=== PATIENT | male | born 1985 | race Caucasian/White ===

== ENCOUNTER 2017-04-20 01:50 | Emergency (ER) | payer BC, OTHER ==
[~2017-04-20] VITALS: Ht 190.5 cm; Wt 78.2 kg
[2017-04-20 01:52] VITALS: Ht 190.5 cm; Wt 78.2 kg
--- OUTSIDE RECORDS SUMMARY | 2017-04-20 01:54 | XMS REPORT | Referral Summary ---
Author Author [facility] Organization [facility] Address Unknown Phone Unavailable Care Team Providers Care Adjuster Name Role Phone No PCP, States Primary Care Physician [phone] Encounter VC Date(s): 06/14/15 - 06/14/15 [facility] [address] [place] [id number] Discharge Disposition: 01-Home or Self Care Attending Physician: Aguila Yu MD Admitting Physician: Aguila Yu MD Vital Signs Most recent to 1 oldest [Reference Range]: Blood Pressure 110/80 mmHg [90-140/60-90 mmHg] (06/14/15 11:19 AM) Problem List No Known Problems Allergies, Adverse Reactions, Alerts No Known Medication Allergies Medications mupirocin 2% topical ointment 1 kemal, Topical, BID, # 22 g, 0 Refill(s), Pharmacy: [facility] [id number] Start Date: 06/14/15 Status: Ordered Results No data available for this section Immunizations No data available for this section Procedures No data available for this section Social History Social History Type Response Smoking Status Current every day smoker; Type: Cigarettes; Tobacco use per day: 1 Pack Assessment and Plan Extracted from: Title: Ambulatory Patient Education Author: Aguila Yu MD Date: Allergy Rash A rash is a change in the color or texture of your skin. There are many different types of rashes. You may have other problems that accompany your rash. CAUSES Infections. Allergic reactions. This can include allergies to pets or foods. Certain medicines. Exposure to certain chemicals, soaps, or cosmetics. Heat. Exposure to poisonous plants. Tumors, both cancerous and noncancerous. SYMPTOMS Redness. Scaly skin. Itchy skin. Dry or cracked skin. Bumps. Blisters. Pain. DIAGNOSIS Your caregiver may do a physical exam to determine what type of rash you have. A skin sample (biopsy) may be taken and examined under a microscope. TREATMENT Treatment depends on the type of rash you have. Your caregiver may prescribe certain medicines. For serious conditions, you may need to see a skin doctor ( operator electronic warfare). HOME CARE INSTRUCTIONS Avoid the substance that caused your rash. Do not scratch your rash. This can cause infection. You may take cool baths to help stop itching. Only take zmrt-jnr-[id number] or prescription medicines as directed by your caregiver. Keep all follow-up appointments as directed by your caregiver. SEEK IMMEDIATE MEDICAL CARE IF: You have increasing pain, swelling, or redness. You have a fever. You have new or severe symptoms. You have body aches, diarrhea, or vomiting. Your rash is not better after 3 days. MAKE SURE YOU: Understand these instructions. Will watch your condition. Will get help right away if you are not doing well or get worse. Document Released: 10/31/2003 Document Revised: 02/01/2013 Document Reviewed: [facility] Patient Information 2015 [employer]. This information is not intended to replace advice given to you by your health care provider. Make sure you discuss any questions you have with your health care provider. No follow up information was provided. Extracted from: Title: Office Visit Note Author: Aguila Yu MD Date: 06/14/15 Assessment/Plan Impetigo Bactroban ointment bid for five days, keflex 500mg po qid for ten days. Wound culture or referral to Derm if not responding. Declined today due toexpenses. A work/school note was offered and deferred by the patient. Rash See above. Call report if not improving. Consider diflucan if not resolved.
--- OUTSIDE RECORDS SUMMARY | 2017-04-20 01:54 | XMS REPORT | Continuity of Care Document ---
Author Author [facility] Address Unknown Phone Unavailable Care Team Providers Care Pocket Marker Name Role Phone Aguila Yu PP Unavailable Payers Payer name Insurance type Covered republican ID Authorization(s) Unknown Problems Condition Effective Dates (start - stop) Clinical Status Pain in limb - *Acute Tobacco Abuse - *Chronic Family History Family Member Diagnosis Age At Onset Status Mother (Unknown) Alive and well (Unknown) Father (Unknown) Alive and well (Unknown) Social History Social History Element Description Quantity Unknown Allergies, Adverse Reactions, Alerts Substance Reaction Severity Status Unknown Medications Medication Instructions Dosage Effective Dates (start - stop) Status Chantix Continuing Month Desmond 1 mg tablet take 1 tablet (1MG) by oral route 2 times every day with a glass of water after meals 1 MG - Active Chantix Starting Month Desmond 0.5 mg (11)-1 mg (42) tablets in dose pack take by Oral route as directed on package 0 - Active tramadol 50 mg tablet 1-2 tabs po qhs - Active Mobic 7.5 mg tablet take 1 tablet (7.5MG) by oral route every 12 hours as needed. 7.5 MG - No Longer Active Motrin 800 mg tablet take 1 tablet (800MG) by oral route every 8 hours as needed. 800 MG - Active Immunizations Vaccine Date Status Comments Unknown Results Test Name Date and Time Measure Units Reference Range Abnormal Flag Comments Unknown Vital Signs Date / Time: Height Weight Pulse Rate Blood Pressure Temperature /10:26:00 75.00 in 155.00 lbs 120/76 mm[Hg] 98.9 F Procedures Procedure Date Unknown Encounters Encounter Location Date Patient Visit [facility] Patient Visit [facility] Advance Directives Directive Effective Date Unknown
--- OUTSIDE RECORDS SUMMARY | 2017-04-20 01:54 | XMS REPORT | Continuity of Care Document ---
Author Author [facility] Organization [facility] Address Unknown Phone Unavailable Allergies Active Description Code Type Severity Reaction Onset Reported/Identified Relationship to Patient Clinical Status Yes No Known Medication Allergies NKMA N/A N/A 10/24/2014 Medications Problems Procedures Results Encounters ACCT No. Visit Date/Time Discharge Status Pt. Type Provider Facility Loc./Unit Complaint [id number] 03/21/2016 09:19:00 2015 23:59:00 DIS Outpatient Aguila Yu [facility] [place] knot on foot [id number] 06/14/2015 11:09:00 2014 23:59:00 DIS Outpatient Aguila Yu [facility] [place] RASH [id number] 10/24/2014 19:08:00 2013 23:59:00 DIS Outpatient Chuck Ramachandran [facility] [place] POSS UPPER RESPITORY INFEC
--- OUTSIDE RECORDS SUMMARY | 2017-04-20 01:54 | XMS REPORT | Referral Summary ---
Author Author [facility] Organization [facility] Address Unknown Phone Unavailable Care Team Providers Care Anesthesiologist Name Role Phone Kavya Yu Primary Care Physician [phone] Encounter VC Date(s): 03/21/16 - 03/21/16 [facility] [address] [place] [id number]- Discharge Disposition: 01-Home or Self Care Attending Physician: Aguila Yu MD Admitting Physician: Aguila Yu MD Vital Signs Most recent to 1 oldest [Reference Range]: Blood Pressure 120/60 mmHg [90-140/60-90 mmHg] (03/21/16 9:29 AM) Problem List No Known Problems Allergies, Adverse Reactions, Alerts No Known Medication Allergies Medications mupirocin 2% topical ointment 1 kemal, Topical, BID, # 22 g, 0 Refill(s), Pharmacy: [facility] [id number] Start Date: 06/14/15 Status: Ordered Results No data available for this section Immunizations No data available for this section Procedures No data available for this section Social History Social History Type Response Smoking Status Current every day smoker; Type: Cigarettes; Tobacco use per day: 1 Pack Assessment and Plan Extracted from: Title: Ambulatory Patient Education Author: Aguila Yu MD Date: [facility] Medicine Cryotherapy Cryotherapy means treatment with cold. Ice or gel packs can be used to reduce both pain and swelling. Ice is the most helpful within the first 24 to 48 hours after an injury or flare-up from overusing a muscle or joint. Sprains, strains, spasms, burning pain, shooting pain, and aches can all be eased with ice. Ice can also be used when recovering from surgery. Ice is effective, has very few side effects, and is safe for most people to use. PRECAUTIONS Ice is not a safe treatment option for people with: Raynaud phenomenon. This is a condition affecting small blood vessels in the extremities. Exposure to cold may cause your problems to return. Cold hypersensitivity. There are many forms of cold hypersensitivity, including: Cold urticaria. Red, itchy hives appear on the skin when the tissues begin to warm after being iced. Cold erythema. This is a red, itchy rash caused by exposure to cold. Cold hemoglobinuria. Red blood cells break down when the tissues begin to warm after being iced. The hemoglobin that carry oxygen are passed into the urine because they cannot combine with blood proteins fast enough. Numbness or altered sensitivity in the area being iced. If you have any of the following conditions, do not use ice until you have discussed cryotherapy with your caregiver: Heart conditions, such as arrhythmia, angina, or chronic heart disease. High blood pressure. Healing wounds or open skin in the area being iced. Current infections. Rheumatoid arthritis. Poor circulation. Diabetes. Ice slows the blood flow in the region it is applied. This is beneficial when trying to stop inflamed tissues from spreading irritating chemicals to surrounding tissues. However, if you expose your skin to cold temperatures for too long or without the proper protection, you can damage your skin or nerves. Watch for signs of skin damage due to cold. HOME CARE INSTRUCTIONS Follow these tips to use ice and cold packs safely. Place a dry or damp towel between the ice and skin. A damp towel will cool the skin more quickly, so you may need to shorten the time that the ice is used. For a more rapid response, add gentle compression to the ice. Ice for no more than 10 to 20 minutes at a time. The bonier the area you are icing, the less time it will take to get the benefits of ice. Check your skin after 5 minutes to make sure there are no signs of a poor response to cold or skin damage. Rest 20 minutes or more between uses. Once your skin is numb, you can end your treatment. You can test numbness by very lightly touching your skin. The touch should be so light that you do not see the skin dimple from the pressure of your fingertip. When using ice, most people will feel these normal sensations in this order: cold, burning , aching, and numbness. Do not use ice on someone who cannot communicate their responses to pain , such as small children or people with dementia. HOW TO MAKE AN ICE PACK Ice packs are the most common way to use ice therapy. Other methods include ice massage, ice baths, and cryosprays. Muscle creams that cause a cold, tingly feeling do not offer the same benefits that ice offers and should not be used as a substitute unless recommended by your caregiver. To make an ice pack, do one of the following: Place crushed ice or a bag of frozen vegetables in a sealable plastic bag. Squeeze out the excess air. Place this bag inside another plastic bag. Slide the bag into a pillowcase or place a damp towel between your skin and the bag. Mix 3 parts water with 1 part rubbing alcohol. Freeze the mixture in a sealable plastic bag. When you remove the mixture from the freezer, it will be slushy. Squeeze out the excess air. Place this bag inside another plastic bag. Slide the bag into a pillowcase or place a damp towel between your skin and the bag. SEEK MEDICAL CARE IF: You develop white spots on your skin. This may give the skin a blotchy ( mottled) appearance. Your skin turns blue or pale. Your skin becomes waxy or hard. Your swelling gets worse. MAKE SURE YOU: Understand these instructions. Will watch your condition. Will get help right away if you are not doing well or get worse. This information is not intended to replace advice given to you by your health care provider. Make sure you discuss any questions you have with your health care provider. Document Released: 07/06/2012 Document Revised: 03/27/2015 Document Reviewed: [facility] Patient Information 2015 [facility]. Musculoskeletal Pain Musculoskeletal pain is muscle and benita aches and pains. These pains can occur in any part of the body. Your caregiver may treat you without knowing the cause of the pain. They may treat you if blood or urine tests, X-rays, and other tests were normal. CAUSES There is often not a definite cause or reason for these pains. These pains may be caused by a type of germ (virus). The discomfort may also come from overuse. Overuse includes working out too hard when your body is not fit. Benita aches also come from weather changes. Bone is sensitive to atmospheric pressure changes. HOME CARE INSTRUCTIONS Ask when your test results will be ready. Make sure you get your test results. Only take iiae-fhn-omlcskm or prescription medicines for pain, discomfort , or fever as directed by your caregiver. If you were given medications for your condition, do not drive, operate machinery or power tools, or sign legal documents for 24 hours. Do not drink alcohol. Do not take sleeping pills or other medications that may interfere with treatment. Continue all activities unless the activities cause more pain. When the pain lessens, slowly resume normal activities. Gradually increase the intensity and duration of the activities or exercise. During periods of severe pain, bed rest may be helpful. Lay or sit in any position that is comfortable. Putting ice on the injured area. Put ice in a bag. Place a towel between your skin and the bag. Leave the ice on for 15 to 20 minutes, 3 to 4 times a day. Follow up with your caregiver for continued problems and no reason can be found for the pain. If the pain becomes worse or does not go away, it may be necessary to repeat tests or do additional testing. Your caregiver may need to look further for a possible cause. SEEK IMMEDIATE MEDICAL CARE IF: You have pain that is getting worse and is not relieved by medications. You develop chest pain that is associated with shortness or breath, sweating, feeling sick to your stomach (nauseous), or throw up (vomit). Your pain becomes localized to the abdomen. You develop any new symptoms that seem different or that concern you. MAKE SURE YOU: Understand these instructions. Will watch your condition. Will get help right away if you are not doing well or get worse. This information is not intended to replace advice given to you by your health care provider. Make sure you discuss any questions you have with your health care provider. Document Released: 11/10/2006 Document Revised: 02/01/2013 Document Reviewed: [employer] Patient Information 2015 [employer]. No follow up information was provided. Extracted from: Title: Office Visit Note Author: Aguila Yu MD Date: 03/21/16 Assessment/Plan Acute pain of right foot Xray pending.Consult with . Meds and RTW note offered and declined. Orders: XR Foot Complete Right
--- NOTE | 2017-04-20 02:00 | NUR ---
PROVIDER DR. KO IN ROOM WITH PT, OBTAINS CULTURE WITH EXAM.
--- OUTSIDE RECORDS SUMMARY | 2017-04-20 02:02 | XMS REPORT | Continuity of Care Document ---
Author Author [facility] Organization [facility] Address Unknown Phone Unavailable Allergies Active Description Code Type Severity Reaction Onset Reported/Identified Relationship to Patient Clinical Status Yes No Known Medication Allergies NKMA N/A N/A 10/24/2014 Medications Problems Procedures Results Encounters ACCT No. Visit Date/Time Discharge Status Pt. Type Provider Facility Loc./Unit Complaint [id number] 03/21/2016 09:19:00 2015 23:59:00 DIS Outpatient Aguila Yu [facility] [place] knot on foot [id number] 06/14/2015 11:09:00 2014 23:59:00 DIS Outpatient Aguila Yu [facility] [place] RASH [id number] 10/24/2014 19:08:00 2013 23:59:00 DIS Outpatient Chuck Ramachandran [facility] [place] POSS UPPER RESPITORY INFEC
--- NOTE | 2017-04-20 02:06 | ERPDOC ---
Departure Disposition Decision Date: April 20, 2017 Disposition Decision Time: 02:09 Disposition: 01 DISCHARGED HOME, SELF-CARE Impression Impression Impression: Primary Impression: Perirectal abscess Severity: Severe Condition: Improved Seen By: Physician only Patient Instructions: Abscess (ED) Problems/Meds/Labs Reviewed?: Yes Medications reviewed and manag: Yes Additional Instructions: Wash wound twice daily with mild soap and water/sitz baths and any time after stooling Keflex 500 mg one tablet 3 times daily for 10 days Bactrim DS, one tablet twice daily for 10 days [place] 5 mg one to 2 tablets every 6 hours as needed for pain Follow up care ordered?: Yes Mental Status: Alert Scripts Hydrocodone/Acetaminophen ([place] 5-325 Tablet) 5-325 Tablet 1-2 TAB PO QID Y for PAIN, #30 Prov: KATERIN KO MD 04/20/17 Cephalexin (Keflex) 500 Mg Capsule 500 MG PO TID, #30 CAP Prov: KATERIN KO MD 04/20/17 Sulfamethoxazole/Trimethoprim (Bactrim Ds Tablet) 1 Each Tablet 1 TAB PO BID, #20 TAB Take 1 tablet, by mouth, 2 times a day. Prov: KATERIN KO MD 04/20/17 HPI - Male General Chief Complaint: Skin Rash/Abscess Stated Complaint: POSS INSECT BITE,WEAKNESS Time Seen by Provider: 01:57 Source: patient, family Exam Limitations: no limitations HPI - Male Initial Comments Perirectal boil that burst at home tonight. Pt was concerned and wanted it looked at. Occurred At: home Onset: Rapid Duration: 1-3 hrs Severity/Quality: burning 1 - Small 4 cm ruptured abscess with moderate erythema and induration surrounding. Hx of Similar Symptoms: No Allergies: Coded Allergies: No Known Allergies (Unverified , 07/23/13) Past History Past Medical History Pt denies signifigant PMH Vaccines Hx Tetanus, Diptheria, Pertuss: Yes (07/23/13) Review of Systems Constitutional Constitutional: DENIES: appetite decrease, appetite increase, chills, dizziness , weakness ENMT Ears: DENIES: pain Hearing: DENIES: hearing loss, tinnitus Balance: DENIES: vertigo Mouth/Throat: DENIES: change in swallowing, change in voice, hoarsness, painful swallowing, sore throat Cardiovascular Cardiac: DENIES: chest pain, dyspnea on exertion Rhythm/Rate: DENIES: irregular beat, palpitations, tachycardia Vascular: DENIES: pedal edema Pulmonary Respiratory: DENIES: cough, dyspnea, pleuritic chest pain GI Upper Abdomen: DENIES: dysphagia, heartburn/indigestion, nausea, pain, vomiting Lower Abdomen: DENIES: blood in stool, constipation, diarrhea, pain General: DENIES: burning, dysuria, frequency, pain, urgency Comments Perirectal abscess Musculoskeletal General: DENIES: cramps, joint pain, joint swelling, pain, weakness Integumentary Skin: DENIES: rash, sores Neurological General: DENIES: headache, numbness, tingling, vertigo, weakness Psychiatric Psychiatric: DENIES: anxiety, depression, nervousness Physical Exam General General Nourishment: well nourished, well developed, appears stated age, no acute distress General Body Habitus: well groomed Vitals and Pain Weight: Kilograms: Height (feet): Height (inches): Triage Pain Scale: RN VS reviewed by Provider: Yes Normal Exams: Head: Normocephalic w/o trauma Eyes: Pupils are PERRLA w/ EOMI, No scleral icterus, irritation, or foreign bodies noted ENMT: No facial trauma, nasal exudates, pharyngeal erythema, or exudates are noted Neck: Full range of motion, without adenopathy, JVD, bruits or thyromegaly Chest/Resp: Clear all kaye, with good airflow, and symmetry bilaterally CV: Regular rate and rhythm, without murmur or gallop, Pulses 2+ all extremities, capillary refill, <2 seconds all ext., no pedal edema noted Abdomen: Bowel sounds positive, soft, non-tender, non-distended, no hepatosplenomegaly, masses or bruits noted Musculoskeletal: No tenderness, or deformity noted, good range of motion, all extremities Integumentary: No rashes, hives, or bruising noted, hair and nails, without abnormality Neurologic: Patient is alert, and oriented, cranial nerves, motor/sensory/ cerebellar, exams w/o gross deficits, to observation Psychiatric: Patient exhibits, appropriate attention, emotion and affect (brief) Comments Ruptured perirectal abscess at the 1:00 position, as described/diagrammed Progress Progress Progress Cultures taken Patient started on [place] for pain, and Bactrim/Keflex for protection against cellulitis/MRSA KATERIN KO MD April 20, 2017 02:05
[2017-04-20] MEDS ORDERED: CEPH-583 PO (02:10)
[2017-04-20] MEDS ORDERED: SULF1TAB42 PO (02:10)
[2017-04-20] MEDS ORDERED: HYDR-4246 PO (02:10)
[2017-04-20] MEDS ORDERED: CEPHALEXIN 500 MG CAPSULE PO ONE (02:15)
[2017-04-20] MEDS ORDERED: HYDROCODONE/APAP 5/325 (PrePack) SENT HOME ONE (02:15)
[2017-04-20 02:22] VITALS: BP 128/74; PULSE 88; RESP 18; TEMP 98.2; O2SAT 97
[2017-04-20] MEDS ORDERED: HYDROCODONE/APAP 5 mg/325 mg TABLET PO ONE (02:30)
[2017-04-20] MEDS ORDERED: SULFAMETHOXAZOLE/TMP 800mg/160mg TABLET PO ONE (09:00)
== END 2017-04-20 02:25 | disposition home or self-care (01) ==
LOC: ED 01:50
DX: K61.1 Rectal abscess (principal)
CPT/HCPCS: 87070; 87075; 87205